=== PATIENT | female | born 1955 | race Caucasian/White ===

== ENCOUNTER 2016-09-12 11:42 | Emergency (ER) ==
[2016-09-12 13:08] LABS: MANUAL DIFF NEEDED? NO
[2016-09-12 13:09] LABS: BASO% 0.6 % (0.0-0.8); EOS# 0.17 X1000 (0.0-0.7); EOS% 1.7 % (0.0-10.0); HEMATOCRIT 41.3 % (37.0-47.0); HEMOGLOBIN 13.4 g/dL (12.0-16.0); IMM GRAN# 0.02 X1000 (0.0-0.04); IMM GRAN% 0.2 % (0.0-0.5); LYMPH# 1.78 X1000 (1.2-3.4); LYMPH% 18.2 % (20.5-51.1); MCH 29.6 PG (27-31); MCHC 32.4 g/dL (33-37); MCV 91.4 FL (81-99); MONO# 0.79 X1000 (0.11-0.59); MONO% 8.1 % (1.7-9.3); MPV 10.2 FL (7.4-10.4); NEUT% 71.2 % (42.2-75.2); PLT 264 X1000 (130-400); RBC 4.52 XMIL (4.2-5.4)
[2016-09-12 13:27] LABS: AGAP 14; ALBUMIN 4.3 g/dL (3.5-5.0); ALKALINE PHOSPHATASE 192 U/L (32-104); BUN 13 mg/dL (8-22); CALCIUM 10.5 mg/dL (8.8-10.2); CHLORIDE 96 mmol/L (98-107); COSMO 274; GOT 57 U/L (10-30); GPT 48 U/L (10-36); LIPASE 62 U/L (13-60); POTASSIUM 3.8 mmol/L (3.5-5.1); SODIUM 135 mmol/L (136-145); TCO2 25 mmol/L (25-35); TOTAL PROTEIN 8.2 g/dL (6.3-8.3)
--- NOTE | 2016-09-12 13:39 | PROVIDER DOCUMENTATION ---
HPI-General Adult - General Source: patient - History of Present Illness -Gen Adult Nature of Presenting Problems: Pt is 60 y/o F presents to the ED with F and chills. Pt states having a kidney stent placed September 07 and having F and chills last night. Pt states calling the doctor who placed the stent and doctor stated go to the ER. Location of Pain/Injury: reports: none Pain Radiation: reports: no radiation Quality of Pain: reports: none Onset/Duration: reports: last night Timing: reports: still present, intermittent Context/Activities at Onset: reports: light activity Modifying Factors: improves with: nothing Associated Symptoms: reports: fever/chills. denies: arm pain, back/neck pain, chest pain, cough, loss of appetite, muscle aches, nausea, rash, shortness of breath, vomiting, weakness Similar Symptoms Previously?: No Recently seen or treated by another doctor?: No <Opal Gomez - Last Filed: 09/12/16 13:31> <Evan Linares - Last Filed: 09/12/16 16:46> - General Chief Complaint: Fever Stated Complaint: FEVER Time Seen by Provider: 09/12/16 12:51 Allergies/Adverse Reactions: Patient Allergies Allergy/AdvReac Type Severity Reaction Status Date / Time No Known Allergies Allergy Verified 09/12/16 11:57 Home Medications: ATORVAstatin [Lipitor] 10 mg PO DAILY 08/10/12 Aspirin EC [Aspirin E.c] 81 mg PO DAILY 08/10/12 Levothyroxine [Synthroid] 100 microgm PO DAILY 08/10/12 Lisinopril 20 mg PO BID 08/10/12 Metformin [Glucophage] 1,000 mg PO BID 08/10/12 Glimepiride [Amaryl] 2 mg PO DAILY 12/12/14 Cyclobenzaprine [Flexeril] 10 mg PO TID 01/23/15 Escitalopram [Lexapro] 10 mg PO DAILY 09/12/16 Esomeprazole Magnesium [Nexium] 20 mg PO DAILY 09/12/16 Glimepiride [Amaryl] 4 mg PO BID 09/12/16 Review of Systems - Adult - REVIEW OF SYSTEMS - ADULT Constitutional: reports: chills, fever Eyes: denies: blurred vision, double vision Ears, Nose, Mouth & Throat: denies: ear pain, nose pain, throat pain Cardiovascular: denies: chest pain, heart murmur, irregular heart rate Respiratory: denies: cough, shortness of breath, wheezing Gastrointestinal: denies: abdominal pain, diarrhea, nausea, vomiting Genitourinary: denies: dysuria, hematuria Musculoskeletal: denies: bone pain, joint pain, neck pain Integumentary: denies: hives, itching Neurological: denies: dizziness/vertigo, headache/migraines Psychiatric: reports: no symptoms reported Endocrine: reports: no symptoms reported Hematologic/Lymphatic: reports: no symptoms reported Allergic/Immunologic: reports: no symptoms reported All Other Systems: Reviewed and Negative <Opal Gomez - Last Filed: 09/12/16 13:31> Past History - Adult - PAST MEDICAL HISTORY-ADULT Review of Records: reports: Nursing Assessment Review, Medications Reviewed, Social history reviewed & non-contributory. Major Childhood Illnesses: reports: denies history Cardiovascular: reports: A-Fib, HTN, hyperlipidemia Respiratory: reports: sleep apnea Gastrointestinal: reports: GERD Obstetrical/Gynecological: reports: denies history Genitourinary: reports: kidney stones Musculoskeletal: reports: chronic pain, fibromyalgia, intervertebral disc disease, neck/back injury Neurological: reports: denies history Psychiatric: reports: anxiety, depression Endocrine/Immune: reports: Diabetes (insulin), thyroid disorder (hypothyroid) Other Conditions: reports: denies history - PRIOR SURGERIES/PROCEDURES Surgical/Procedure History: reports: cholecystectomy, hysterectomy, tonsillectomy, back/neck - PRIOR HOSPITALIZATIONS Prior Hospitalizations: reports: none - IMMUNIZATION STATUS Childhood Immunizations: See Nurse Assessment Flu Vaccine: See Nurse Assessment - FAMILY HISTORY Family History: reviewed, not pertinent - SOCIAL HISTORY Smoking: denies Substance Use: alcohol Alcohol Use Frequency: occasionally Number of drinks per typical drinking period:: 3-4 drinks Living Situation: family <Opal Gomez - Last Filed: 09/12/16 13:31> Physical Exam-General - PHYSICAL EXAM-ADULT Initial Vital Signs Reviewed: Yes - CONSTITUTIONAL General Appearance: appears well, alert, no apparent distress - EYES Eyes: PERRL/EOMI, pink conjunctivae - HEAD, EARS, NOSE, MOUTH & THROAT HENMT: normocephalic/atraumatic, moist mucous membranes, normal ENT inspection - NECK Neck: non-tender, full range of motion, supple, normal inspection - RESPIRATORY Respiratory: chest non-tender, lungs clear, normal breath sounds - CARDIOVASCULAR Cardiovascular: normal peripheral pulses, regular rate, rhythm, no edema - GASTROINTESTINAL (ABDOMEN) Abdominal Exam: normal bowel sounds, non tender, soft - LYMPHATIC Lymphatic: no adenopathy - MUSCULOSKELETAL Back Exam: normal inspection, no CVA tenderness, no vertebral tenderness Extremity: normal range of motion, non-tender, normal gait - SKIN Integumentary: normal color, normal turgor, warm/dry - NEUROLOGIC Neurologic: fish processor II-XII nml as tested, grossly normal, no motor/sensory deficits - PSYCHIATRIC Psych/Mental Status: normal mood/affect, normal thought content, normal thought process, oriented x 3 <Opal Gomez - Last Filed: 09/12/16 13:31> Progress - PLAN OF CARE/RESULTS Progress/Plan/Lab Results: Laboratory Tests 09/12/16 09/12/16 13:04 13:04 WBC 9.79 RBC 4.52 Hgb 13.4 Hct 41.3 MCV 91.4 MCH 29.6 MCHC 32.4 L RDW Std Deviation 12.3 Plt Count 264 MPV 10.2 Immature Gran % (Auto) 0.2 Neut % (Auto) 71.2 Lymph % (Auto) 18.2 L [place] % (Auto) 8.1 Eos % (Auto) 1.7 Baso % (Auto) 0.6 Immature Gran # (Auto) 0.02 Neut # (Auto) 6.97 H Lymph # (Auto) 1.78 [place] # (Auto) 0.79 H Eos # (Auto) 0.17 Baso # (Auto) 0.06 Sodium 135 L Potassium 3.8 Chloride 96 L Carbon Dioxide 25 Anion Gap 14 BUN 13 Creatinine 0.8 Estimated GFR/1.73 m2 > 60 BUN/Creatinine Ratio 16 Glucose 167 H Calculated Osmolality 274 Calcium 10.5 H Total Bilirubin 0.60 AST 57 H ALT 48 H Alkaline Phosphatase 192 H Total Protein 8.2 Albumin 4.3 Globulin 4.0 Albumin/Globulin Ratio 1.0 Lipase 62 H Orders Category Date Time Status Saline Loc NOW Care 09/12/16 12:54 Active CBC WITH DIFF [HEME] Stat Lab 09/12/16 13:04 Completed COMPREHENSIVE METABOLIC PANEL [CHEM] Stat Lab 09/12/16 13:[address] Stat Lab 09/12/16 13:15 Ordered LIPASE [CHEM] Stat Lab 09/12/16 13:[address] W/POSS RFLX CULT [URINALYSIS] Stat Lab 09/12/16 12:54 Uncollected Vital Signs - 24 hr 09/12/16 11:51 Temperature 100.6 F H Pulse Rate 95 H Respiratory 18 Rate Blood Pressure 149/84 O2 Sat by Pulse 98 Oximetry <Opal Gomez - Last Filed: 09/12/16 13:31> - PLAN OF CARE/RESULTS Progress/Plan/Lab Results: Laboratory Tests 09/12/16 09/12/16 09/12/16 13:04 13:04 13:15 WBC 9.79 RBC 4.52 Hgb 13.4 Hct 41.3 MCV 91.4 MCH 29.6 MCHC 32.4 L RDW Std Deviation 12.3 Plt Count 264 MPV 10.2 Immature Gran % (Auto) 0.2 Neut % (Auto) 71.2 Lymph % (Auto) 18.2 L [place] % (Auto) 8.1 Eos % (Auto) 1.7 Baso % (Auto) 0.6 Immature Gran # (Auto) 0.02 Neut # (Auto) 6.97 H Lymph # (Auto) 1.78 [place] # (Auto) 0.79 H Eos # (Auto) 0.17 Baso # (Auto) 0.06 Sodium 135 L Potassium 3.8 Chloride 96 L Carbon Dioxide 25 Anion Gap 14 BUN 13 Creatinine 0.8 Estimated GFR/1.73 m2 > 60 BUN/Creatinine Ratio 16 Glucose 167 H Calculated Osmolality 274 Calcium 10.5 H Total Bilirubin 0.60 AST 57 H ALT 48 H Alkaline Phosphatase 192 H Total Protein 8.2 Albumin 4.3 Globulin 4.0 Albumin/Globulin Ratio 1.0 Lipase 62 H Plasma Lactate Urine Source Urine Color Urine Clarity Urine pH Ur Specific [place] Urine Protein Urine Ketones Urine Blood Urine Nitrite Urine Bilirubin Urine Urobilinogen Urine Microscopic RBC Urine WBC Urine Microscopic WBC Ur Epithelial Cells Urine Bacteria Urine Glucose Influenza A (Rapid) NEGATIVE Influenza B (Rapid) NEGATIVE 09/12/16 09/12/16 13:30 15:45 WBC RBC Hgb Hct MCV MCH MCHC RDW Std Deviation Plt Count MPV Immature Gran % (Auto) Neut % (Auto) Lymph % (Auto) [place] % (Auto) Eos % (Auto) Baso % (Auto) Immature Gran # (Auto) Neut # (Auto) Lymph # (Auto) [place] # (Auto) Eos # (Auto) Baso # (Auto) Sodium Potassium Chloride Carbon Dioxide Anion Gap BUN Creatinine Estimated GFR/1.73 m2 BUN/Creatinine Ratio Glucose Calculated Osmolality Calcium Total Bilirubin AST ALT Alkaline Phosphatase Total Protein Albumin Globulin Albumin/Globulin Ratio Lipase Plasma Lactate 2.1 Urine Source CLEAN CATCH Urine Color YUSUF Urine Clarity SL. CLOUDY A Urine pH 6.5 Ur Specific [place] 1.020 Urine Protein 3+(500 mg/dL) A Urine Ketones NEGATIVE Urine Blood 4+ Urine Nitrite POSITIVE A Urine Bilirubin NEGATIVE Urine Urobilinogen NORMAL Urine Microscopic RBC TNTC A Urine WBC 2+ A Urine Microscopic WBC 20-40 A Ur Epithelial Cells <10 Urine Bacteria 2+ Urine Glucose 1+(100 mg/dL) A Influenza A (Rapid) Influenza B (Rapid) Orders Category Date Time Status Saline Loc NOW Care 09/12/16 12:54 Active CBC WITH DIFF [HEME] Stat Lab 09/12/16 13:04 Completed COMPREHENSIVE METABOLIC PANEL [CHEM] Stat Lab 09/12/16 13:[address] Stat Lab 09/12/16 13:15 Completed LACTATE, PLASMA [CHEM] Stat Lab 09/12/16 15:45 Completed LIPASE [CHEM] Stat Lab 09/12/16 13:[address] W/POSS RFLX CULT [URINALYSIS] Stat Lab 09/12/16 13:30 Completed URINE CULTURE [RM] Routine Lab 09/12/16 14:22 Ordered 0.9% Sodium Chloride Inj [Ns] 1,000 ml Med 09/12/16 14:33 Discontinued IV 999 mls/hr Acetaminophen [Ofirmev 1000 mg/Isotonic Soln] 100 ml Med 09/12/16 14:33 Discontinued IV NOW CefTRIAXONE 1 GM/NS [Rocephin 1 gm/Ns] 50 ml Med 09/12/16 14:33 Discontinued IV NOW Vital Signs Temp Pulse Resp BP Pulse Ox 09/12/16 16:09 99.3 F 82 18 125/64 97 09/12/16 15:13 101.3 F H 88 16 103/55 94 L 09/12/16 11:51 100.6 F H 95 H 18 149/84 98 No Known Allergies Allergy (Verified 09/12/16 11:57) ATORVAstatin [Lipitor] 10 mg PO DAILY 08/10/12 Aspirin EC [Aspirin E.c] 81 mg PO DAILY 08/10/12 Levothyroxine [Synthroid] 100 microgm PO DAILY 08/10/12 Lisinopril 20 mg PO BID 08/10/12 Metformin [Glucophage] 1,000 mg PO BID 08/10/12 Glimepiride [Amaryl] 2 mg PO DAILY 12/12/14 Cyclobenzaprine [Flexeril] 10 mg PO TID 01/23/15 Escitalopram [Lexapro] 10 mg PO DAILY 09/12/16 Esomeprazole Magnesium [Nexium] 20 mg PO DAILY 09/12/16 Glimepiride [Amaryl] 4 mg PO BID 09/12/16 Laboratory 09/12/16 09/12/16 09/12/16 15:45 13:30 13:15 WBC RBC Hgb Hct MCV MCH MCHC RDW Std Deviation Plt Count MPV Immature Gran % (Auto) Neut % (Auto) Lymph % (Auto) [place] % (Auto) Eos % (Auto) Baso % (Auto) Immature Gran # (Auto) Neut # (Auto) Lymph # (Auto) [place] # (Auto) Eos # (Auto) Baso # (Auto) Sodium Potassium Chloride Carbon Dioxide Anion Gap BUN Creatinine Estimated GFR/1.73 m2 BUN/Creatinine Ratio Glucose Calculated Osmolality Calcium Total Bilirubin AST ALT Alkaline Phosphatase Total Protein Albumin Globulin Albumin/Globulin Ratio Lipase Plasma Lactate 2.1 Urine Source CLEAN CATCH Urine Color YUSUF Urine Clarity SL. CLOUDY A Urine pH 6.5 Ur Specific [place] 1.020 Urine Protein 3+(500 mg/dL) A Urine Ketones NEGATIVE Urine Blood 4+ Urine Nitrite POSITIVE A Urine Bilirubin NEGATIVE Urine Urobilinogen NORMAL Urine Microscopic RBC TNTC A Urine WBC 2+ A Urine Microscopic WBC 20-40 A Ur Epithelial Cells <10 Urine Bacteria 2+ Urine Glucose 1+(100 mg/dL) A Influenza A (Rapid) NEGATIVE Influenza B (Rapid) NEGATIVE 09/12/16 09/12/16 13:04 13:04 WBC 9.79 RBC 4.52 Hgb 13.4 Hct 41.3 MCV 91.4 MCH 29.6 MCHC 32.4 L RDW Std Deviation 12.3 Plt Count 264 MPV 10.2 Immature Gran % (Auto) 0.2 Neut % (Auto) 71.2 Lymph % (Auto) 18.2 L [place] % (Auto) 8.1 Eos % (Auto) 1.7 Baso % (Auto) 0.6 Immature Gran # (Auto) 0.02 Neut # (Auto) 6.97 H Lymph # (Auto) 1.78 [place] # (Auto) 0.79 H Eos # (Auto) 0.17 Baso # (Auto) 0.06 Sodium 135 L Potassium 3.8 Chloride 96 L Carbon Dioxide 25 Anion Gap 14 BUN 13 Creatinine 0.8 Estimated GFR/1.73 m2 > 60 BUN/Creatinine Ratio 16 Glucose 167 H Calculated Osmolality 274 Calcium 10.5 H Total Bilirubin 0.60 AST 57 H ALT 48 H Alkaline Phosphatase 192 H Total Protein 8.2 Albumin 4.3 Globulin 4.0 Albumin/Globulin Ratio 1.0 Lipase 62 H Plasma Lactate Urine Source Urine Color Urine Clarity Urine pH Ur Specific [place] Urine Protein Urine Ketones Urine Blood Urine Nitrite Urine Bilirubin Urine Urobilinogen Urine Microscopic RBC Urine WBC Urine Microscopic WBC Ur Epithelial Cells Urine Bacteria Urine Glucose Influenza A (Rapid) Influenza B (Rapid) pt feels much better. Will attempt to tx as outpt and have her f/u c her urologist in [place]. Discussed this c Dr. Kent and he is in agreement as is the pt. <Evan Linares - Last Filed: 09/12/16 16:46> Departure <Opal Gomez - Last Filed: 09/12/16 13:31> - Departure Time of Disposition Order: 16:45 Certified Medical Emergency: Emergent <vEan Linares - Last Filed: 09/12/16 16:46> - Departure DIAGNOSIS: UTI (urinary tract infection) Qualifiers: Urinary tract infection type: site unspecified Hematuria presence: with hematuria Qualified Code(s): N39.0 - Urinary tract infection, site not specified ; R31.9 - Hematuria, unspecified Disposition: HOME 01 Condition: Good Additional Instructions: Take medication as prescribed. Follow up with your urologist. Return to the ER for any new or worsening symptoms. ED Follow Up Instructions: You have been treated by a care provider in the Emergency Department. These instructions are being provided to you so you can have an understanding of how to care for yourself upon discharge. Upon discharge from the Emergency Department, you are responsible for making arrangements for follow-up care by a physician of your choice. Take all prescribed medications as directed. Return to the Emergency Department immediately for any new or worsening symptoms. You may call the Physician Referral phone number at [phone] to obtain a list of Physicians who are taking new patients. Prescriptions: Sulfamethoxazole/Trimethoprim [Bactrim Ds Tablet] 1 each PO BID #10 tablet Promethazine [Phenergan] 25 mg PO Q6H PRN PRN #20 tablet PRN Reason: Nausea Attestation - Scribe Verification/Attestation Scribe:: Opal Gomez Acting as Scribe for:: Evan Linares Scribe documention review:: This chart was documented by a scribe and accurately reflects the service the provider performed and the decisions made by the provider. <Opal Gomez - Last Filed: 09/12/16 13:31> - Physician/ Mid-level Attestation Patient care was provided by Mid-level provider (WRECKING [employer]IC/PA):: Yes Mid-level provider:: Evan Linares Mid-level documentation review:: The Mid-level provider documentation, treatment plan and medical decision making was reviewed by the physician who agrees with all treatment and medical decision making by the [facility]. <Evan Linares - Last Filed: 09/12/16 16:46> Physician Attestation
[2016-09-12 13:46] LABS: URINE SOURCE CLEAN CATCH
[2016-09-12 13:58] LABS: BILIRUBIN URINE NEGATIVE (NEGATIVE); BLOOD URINE 4+ (NEGATIVE); CLARITY SL. CLOUDY (CLEAR); COLOR AMBER; LEUKOCYTES URINE 2+ (NEGATIVE); NITRITE URINE POSITIVE (NEGATIVE); PH URINE 6.5; UROBILINOGEN URINE NORMAL
[2016-09-12 14:22] LABS: URINE CULTURE PL NEEDED? YES; URINE EPITHELIAL CELLS <10 /HPF (<10); URINE RBC TNTC /HPF (<10); URINE WBC 20-40 /HPF (<10)
[2016-09-12] MEDS ORDERED: OFIRMEV 1000 MG/ISOTONIC SOLN 100 ML IV ONE (14:33)
[2016-09-12] MEDS ORDERED: NS 1,000 ML IV ONE (14:33)
[2016-09-12] MEDS ORDERED: ROCEPHIN 1 GM/NS 50 ML IV ONE (14:33)
[2016-09-12 16:10] VITALS: BP 125/64
== END 2016-09-12 17:55 | disposition home or self-care (01) ==
LOC: P.ED 11:42
DX: N39.0 Urinary tract infection, site not specified (principal); R31.9 Hematuria, unspecified; R50.9 Fever, unspecified; I48.91 Unspecified atrial fibrillation; I10 Essential (primary) hypertension; E78.5 Hyperlipidemia, unspecified; K21.9 Gastro-esophageal reflux disease without esophagitis; M79.7 Fibromyalgia; E11.9 Type 2 diabetes mellitus without complications; E03.9 Hypothyroidism, unspecified; Z87.442 Personal history of urinary calculi; M48.9 Spondylopathy, unspecified; G89.29 Other chronic pain; F41.9 Anxiety disorder, unspecified; F32.9 Major depressive disorder, single episode, unspecified; Z79.899 Other long term (current) drug therapy; Z79.82 Long term (current) use of aspirin
CPT/HCPCS: 36415; 80053; 81001; 83605; 83690; 85025; 87077; 87088; 87804; 96361; 96365; 96367; J0131; J0696; J7030